=== PATIENT | male | born 1955 | race Caucasian/White ===

== ENCOUNTER 2018-06-02 09:46 | Outpatient (CLI) | payer OTHER ==
--- NOTE | 2018-06-02 16:48 | MRI Report ---
Reason: PAIN IN UNSPECIFIED KNEE Procedure Date: 06/02/2018 Accession Number: [id number] / [id number] Procedure: MRI - Knee RT W/O CPT Code: FULL RESULT: EXAM: RIGHT KNEE MRI WITHOUT CONTRAST EXAM DATE: 06/02/2018 10:37 AM. CLINICAL HISTORY: Knee pain, crepitus, and locking. COMPARISON: None. TECHNIQUE: Multiplanar, multisequence T1-weighted and fluid-sensitive sequences of the knee without contrast. Other: None. FINDINGS: Ligaments: The anterior cruciate ligament is expanded in contour and increased in signal though it is contiguous from femur to tibia. This is consistent with mucoid degeneration. No ACL tear. The posterior cruciate ligament is intact. The medial and lateral collateral ligaments are intact. Patellofemoral compartment: Patellofemoral cartilage is preserved. No patellofemoral osteoarthritis. Patellofemoral alignment is anatomic. The distal quadriceps and patellar tendons are normal. The medial and lateral patellofemoral retinacula are normal. Small horizontally oriented tear contacting the superior articular surface in the peripheral body of the medial meniscus seen on series 601 image 19. There is a further subtle contour defect along the inferior articular surface of the medial margin of the posterior horn extending into the peripheral body. Given postsurgical changes in the medial side of Hoffa's fat pad this is probably sequela of partial meniscectomy. The remainder of the medial meniscus is intact. Medial compartment cartilage is preserved. No medial compartment osteoarthritis. Lateral compartment: There is a cyst in the substance of the anterior horn of the lateral meniscus extending from the anterior horn root to the junction with the peripheral body. This is consistent with cystic degeneration. No definite tear is visible. The remainder of the lateral meniscus is intact. Lateral compartment cartilage is preserved. No lateral compartment osteoarthritis. Soft tissues: There is a tiny knee effusion. No popliteal cyst. IMPRESSION: 1. Small horizontal tear contacting the superior articular surface in the peripheral body of the medial meniscus. Further contour defect along the inferior articular surface of the posterior horn and peripheral body is probably sequela partial meniscectomy. The medial compartment is otherwise normal. 2. 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 No definite lateral meniscal tear. Lateral compartment cartilage is normal. 3. Normal patellofemoral compartment. 4. 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 No ACL tear. RADIA MUSCULOSKELETAL RADIOLOGY SECTION
== END 2018-06-02 09:47 | disposition home or self-care (01) ==
LOC: DI 09:46
PROVIDERS: ATTEND Family Medicine
DX: S83.221A Peripheral tear of medial meniscus, current injury, right knee, initial encounter (principal); M23.011 Cystic meniscus, anterior horn of medial meniscus, right knee; M23.8X2 Other internal derangements of left knee